=== PATIENT | female | born 1945 | race African-American/Black ===

== ENCOUNTER 2017-04-06 01:47 | Emergency (ER) | payer MEDICARE ==
[~2017-04-06] VITALS: Ht 162.6 cm; Wt 68.0 kg
[~2017-04-06 01:47] MED LIST: ABILIFY10 MG ORAL; ABILIFY5 MG ORAL; ALBUTEROL SULF8.5 GM INH; AMLODIPINE BES2.5 MG ORAL; AMLODIPINE BESYL5 MG ORAL; AMOXICILLIN500 MG ORAL; ASPIR 8181 MG ORAL; ASPIRIN EC81 MG ORAL; AUGMENTIN 875-1 EAC1 ORAL; AZITHROMYCIN250 MG ORAL; AZITHROMYCIN500 MG ORAL; BENADRYL25 M3 PO; FLUCONAZOLE100 MG ORAL; HEPARIN SO5000 UNIT2 SUBQ; HYDROCHLOROTHIA25 MG ORAL; LORAZEPAM1 MG ORAL; METOPROLOL TART50 M1 ORAL; MONTELUKAST SOD10 MG ORAL; PREDNISONE20 MG ORAL; PREDNISONE50 MG ORAL; PRILOSEC OTC20 MG ORAL; Potassium Chloride ORAL; SERTRALINE HCL100 MG PO; SINGULAIR10 MG ORAL; TRAMADOL HCL50 MG ORAL; TRAZODONE HCL100 MG ORAL; TRAZODONE HCL50 MG ORAL; ZOLOFT100 MG ORAL
--- NOTE | 2017-04-06 01:55 | Emergency Room Report ---
History of Present Illness General Chief Complaint: Multiple Trauma/Fall Source: Patient, EMS Present Illness HPI This is a 71-year-old female who has some type of autoimmune disease and lupus family per patient. She presents with chief complaint of weakness and fall. She said she been vomiting since November. Seen her doctor twice and hasn't had any workup per patient. She said she got up to use the bathroom today and was very weak and her legs gave out. She complaining of generalize weakness and hip pain. Also with knee pain. No loss of consciousness. Worse with exertion. Had to call 911. Denies any other complaint. Her weight loss is significant per patient. She used to weigh 260 pounds. Denies any diarrhea. Vomiting is nonbloody and nonbilious. Allergies: Coded Allergies: TETRACYCLINES (Unverified Allergy, Unknown, 02/23/14) Patient History Past Medical History: see triage record, old chart reviewed Past Surgical History: other Pertinent Family History: none Social History: Denies: smoking Last Menstrual Period: n/a Now: No Immunizations: other Reviewed Nursing Documentation: PMH: Agreed, PSxH: Agreed Nursing Documentation-PMH Past Medical History: No History, Except For Hx Cardiac Problems: Yes Hx Hypertension: Yes Hx Asthma: Yes Hx Cancer: Yes Hx Gastrointestinal Problems: Yes - flank pain History Of Psychiatric Problem: Yes Hx Neurological Problems: Yes Hx Seizures: Yes Hx Dizziness: Yes Hx Headaches: Yes Review of Systems Constitutional: Reports: weakness Eye: Denies: eye pain, blurred vision ENT: Denies: ear pain, nose congestion, throat swelling Respiratory: Denies: cough, shortness of breath Cardiovascular: Denies: chest pain, palpitations Gastrointestinal: Denies: abdominal pain, diarrhea, nausea, vomiting Musculoskeletal: Reports: joint pain, Denies: back pain Skin: Denies: rash Neurological: Denies: headache, numbness Endocrine: Denies: increased thirst, increased urine Hematologic/Lymphatic: Denies: easy bruising All Other Systems: negative except mentioned in HPI Physical Exam Vital Signs Date Time Temp Pulse Resp B/P (MAP) Pulse Ox O2 Delivery O2 Flow Rate FiO2 04/06/17 01:36 99.0 74 16 140/100 100 Room Air vitals unremarkable Sp02 EP Interpretation: reviewed, normal General Appearance: well appearing, no apparent distress, alert Head: normocephalic, atraumatic Eyes: bilateral eye PERRL, bilateral eye EOMI ENT: hearing grossly normal, normal pharynx Neck: full range of motion, supple, no meningismus Respiratory: chest non-tender, lungs clear, normal breath sounds Cardiovascular #1: regular rate, rhythm, no murmur Gastrointestinal: normal bowel sounds, non tender, no mass, no organomegaly, no bruit, non-distended Musculoskeletal: back normal, normal range of motion, tender - Mild left hip tenderness.. No deformity. Neurologic: alert, oriented x3 Psychiatric: mood/affect normal Skin: warm/dry Medical Decision Making Diagnostic Impression: Primary Impression: Weakness generalized Additional Impressions: Failure to thrive in adult Weight loss, abnormal Contusion, hip and thigh Qualified Codes: S70.00XA - Contusion of unspecified hip, initial encounter; S70.10XA - Contusion of unspecified thigh, initial encounter Proteinuria Qualified Codes: R80.9 - Proteinuria, unspecified ER Course Patient presents with a fall and generalize weakness. She claimed that she's been losing weight for last few month This is unintentional. No evidence of infection. No CHF, ACS, PE, dissection to name a few. Laboratory Tests Test 04/06/17 02:15 04/06/17 02:25 Urine Color Yellow Urine Appearance Slightly cloudy Urine pH 6 (4.5-8.0) Urine Specific [place] 1.015 (1.005-1.035) Urine Protein 2+ (NEGATIVE) H Urine Glucose (UA) Negative (NEGATIVE) Urine Ketones 1+ (NEGATIVE) H Urine Occult Blood 2+ (NEGATIVE) H Urine Nitrite Negative (NEGATIVE) Urine Bilirubin Negative (NEGATIVE) Urine Urobilinogen 4 MG/DL (0.0-1.0) H Urine Leukocyte Esterase 1+ (NEGATIVE) H Urine RBC 2-4 /HPF (0 - 2) H Urine WBC 2-4 /HPF (0 - 2) Urine Squamous Epithelial Cells Moderate /LPF (NONE/OCC) H Urine Bacteria Occasional /HPF (NONE) White Blood Count 10.3 K/UL (4.8-10.8) Red Blood Count 4.64 M/UL (4.20-5.40) Hemoglobin 12.3 G/DL (12.0-16.0) Hematocrit 37.2 % (37.0-47.0) Mean Corpuscular Volume 80 FL (80-99) Mean Corpuscular Hemoglobin 26.5 PG (27.0-31.0) L Mean Corpuscular Hemoglobin Concent 33.0 G/DL (32.0-36.0) Red Cell Distribution Width 17.5 % (11.6-14.8) H Platelet Count 372 K/UL (150-450) Mean Platelet Volume 8.6 FL (6.5-10.1) Neutrophils (%) (Auto) 78.8 % (45.0-75.0) H Lymphocytes (%) (Auto) 13.1 % (20.0-45.0) L Monocytes (%) (Auto) 7.0 % (1.0-10.0) Eosinophils (%) (Auto) 0.5 % (0.0-3.0) Basophils (%) (Auto) 0.7 % (0.0-2.0) Prothrombin Time 10.8 SEC (9.30-11.50) Prothromb Time International Ratio 1.0 (0.9-1.1) Activated Partial Thromboplast Time 32 SEC (23-33) Sodium Level 139 MMOL/L (136-145) Potassium Level 2.6 MMOL/L (3.5-5.1) *L Chloride Level 99 MMOL/L (98-107) Carbon Dioxide Level 25 MMOL/L (21-32) Anion Gap 16 mmol/L (5-15) H Blood Urea Nitrogen 21 mg/dL (7-18) H Creatinine 1.2 MG/DL (0.55-1.30) Estimat Glomerular Filtration Rate 53.9 mL/min (>60) Glucose Level 129 MG/DL (74-106) H Calcium Level 9.2 MG/DL (8.5-10.1) Total Bilirubin 0.9 MG/DL (0.2-1.0) Aspartate Amino Transf (AST/SGOT) 23 U/L (15-37) Alanine Aminotransferase (ALT/SGPT) < 6 U/L (12-78) L Alkaline Phosphatase 74 U/L (46-116) Troponin I 0.053 ng/mL (0.000-0.056) Total Protein 8.3 G/DL (6.4-8.2) H Albumin 2.8 G/DL (3.4-5.0) L Globulin 5.5 g/dL Albumin/Globulin Ratio 0.5 (1.0-2.7) L Lipase 248 U/L (73-393) Lab Results Impression labs unremarkable. EKG Diagnostic Results Rate: normal Rhythm: NSR ST Segments: no acute changes Rhythm Strip Diag. Results Rhythm Strip Time: 05:49 EP Interpretation: yes Rate: 82 Rhythm: NSR, no PVC's, no ectopy Chest X-Ray Diagnostic Results Chest X-Ray Diagnostic Results : Chest X-Ray Ordered: Yes # of Views/Limited/Complete: 1 View Indication: Chest Pain EP Interpretation: Yes Interpretation: no consolidation, no effusion, no pneumothorax, no acute cardiopulmonary disease Impression: No acute disease Electronically Signed by: Jose Miguel Eddy MD Other X-Ray Diagnostic Results Other X-Ray Diagnostic Results : X-Ray ordered: pelvis Indication: Pain EP Interpretation: Yes Interpretation: no dislocation, no soft tissue swelling, no fractures Impression: No acute disease Electronically Signed by: Jose Miguel Eddy MD CT/MRI/US Diagnostic Results CT/MRI/US Diagnostic Results : Imaging Test Ordered: CT abd and pelvis Impression Neg per radiologist. Last Vital Signs Date Time Temp Pulse Resp B/P (MAP) Pulse Ox O2 Delivery O2 Flow Rate FiO2 04/06/17 01:36 99.0 74 16 140/100 100 Room Air Status: improved Disposition: XFER T-[facility] Condition: Stable JOSE MIGUEL EDDY M.D. Apr 06, 2017 01:55
[2017-04-06 02:48] LABS: APPEARANCE,URINE SLIGHTLY CLOUDY; GLUCOSE, URINE (UA) NEGATIVE (NEGATIVE); KETONES,URINE 1+ (NEGATIVE); NITRITE,URINE NEGATIVE (NEGATIVE); PH,URINE 6 (4.5-8.0); PROTEIN,URINE 2+ (NEGATIVE); UROBILINOGEN,URINE 4 MG/DL (0.0-1.0)
[2017-04-06 02:50] LABS: BASOPHILS % (AUTO) 0.7 % (0.0-2.0); EOSINOPHILS % (AUTO) 0.5 % (0.0-3.0); HEMATOCRIT 37.2 % (37.0-47.0); HEMOGLOBIN 12.3 G/DL (12.0-16.0); LYMPHOCYTES % (AUTO) 13.1 % (20.0-45.0); MEAN CORPUSCULAR VOLUME 80 FL (80-99); NEUTROPHILS % (AUTO) 78.8 % (45.0-75.0); PLATELET COUNT 372 K/UL (150-450); RED BLOOD COUNT 4.64 M/UL (4.20-5.40); RED CELL DISTRIBUTION WIDTH 17.5 % (11.6-14.8); WHITE BLOOD COUNT 10.3 K/UL (4.8-10.8)
[2017-04-06 02:56] LABS: ALANINE AMINOTRANSFERASE < 6 U/L (12-78); ALBUMIN 2.8 G/DL (3.4-5.0); ALBUMIN/GLOBULIN RATIO 0.5 (1.0-2.7); ALKALINE PHOSPHATASE 74 U/L (46-116); ANION GAP 16 mmol/L (5-15); ASPARTATE AMINO TRANSFERASE 23 U/L (15-37); BILIRUBIN,TOTAL 0.9 MG/DL (0.2-1.0); BLOOD UREA NITROGEN 21 mg/dL (7-18); CALCIUM 9.2 MG/DL (8.5-10.1); CARBON DIOXIDE 25 MMOL/L (21-32); CHLORIDE 99 MMOL/L (98-107); CREATININE 1.2 MG/DL (0.55-1.30); SODIUM 139 MMOL/L (136-145)
[2017-04-06 03:02] LABS: POTASSIUM 2.6 MMOL/L (3.5-5.1)
[2017-04-06 03:03] VITALS: BP 130/84
[2017-04-06 03:05] LABS: BILIRUBIN, URINE NEGATIVE (NEGATIVE); COLOR,URINE YELLOW
[2017-04-06 03:06] LABS: LEUKOCYTE ESTERASE ,URINE 1+ (NEGATIVE)
[2017-04-06] MEDS ORDERED: Tubing IV Cassette IV ONE (03:22)
[2017-04-06 04:46] VITALS: BP 147/77
[2017-04-06] MEDS ORDERED: FLUTICASONE PRO16 G1 NASAL (04:56)
[2017-04-06] MEDS ORDERED: ATORVASTATIN CA40 MG ORAL (04:56)
[2017-04-06] MEDS ORDERED: BECONASE AQ25 GM NASAL (04:56)
[2017-04-06] MEDS ORDERED: VENTOLIN HFA18 GM INH (04:56)
[2017-04-06] MEDS ORDERED: RITUXAN10 MG/ML IV (04:56)
[2017-04-06 06:01] VITALS: BP 145/75
[2017-04-06 06:15] VITALS: BP 145/75
--- NOTE | 2017-04-06 08:57 | Diagnostic Imaging Report ---
Indication: Abdominal pain Technique: CT of the abdomen and pelvis utilizing automated exposure control without intravenous or oral contrast. CT dose: Total DLP 470.32 mGycm; CTDI vol 9.98 mGy Comparison: 12/19/2015 Findings: Please note that evaluation of the abdominal and pelvic viscera is limited without the use of intravenous and oral contrast. Within these limitations, the following observations are made: There are postoperative changes of the right lung base with scarring and mild fibrosis. Dependent atelectatic changes are noted. The heart is enlarged. There is chronic mild to moderate pericardial effusion. The gallbladder is again noted to be mildly distended. There is no appreciable sludge or stones. No pericholecystic change is identified. Liver, spleen, adrenal glands and pancreas are grossly unremarkable for noncontrast evaluation. Kidneys are symmetric in size. No urinary tract stones or hydronephrosis seen bilaterally. The bladder is mildly collapsed, limiting its evaluation but grossly unremarkable. The patient is status post hysterectomy. There is mild pelvic floor relaxation/dissent. There is no bowel obstruction. No free intraperitoneal fluid or air is identified. There is no appreciable focal or diffuse abnormal bowel wall thickening however evaluation is limited without the use of oral contrast. The appendix is normal. There are a few scattered colonic diverticula. No evidence of diverticulitis. Abdominal aorta is normal in caliber with scattered atherosclerotic calcifications. Old/healed right rib fracture. There are degenerative changes in the spine with unchanged grade 1 anterolisthesis of L4 on L5 with probable associated moderate canal stenosis. Unchanged dystrophic calcification/ossification in the gluteal soft tissues. IMPRESSION: Limited evaluation without intravenous and oral contrast. Within these limitations: * No definite evidence of acute intra-abdominal pathology to explain patient's abdominal pain. More sensitive evaluation with oral and IV contrast can be obtained as clinically indicated. * Unchanged, nonspecific mild gallbladder distention. No stones/sludge identified on CT. No evidence of pericholecystic inflammatory change. Ultrasound can be obtained for better evaluation as clinically indicated. * A few scattered colonic diverticula. No evidence to suggest acute diverticulitis. * Stable cardiomegaly and unchanged mild to moderate pericardial effusion. * Postoperative range of the right lung base with mild fibrotic changes. Additional findings as above. This corresponds with the statrad preliminary report. The CT scanner at [facility] is accredited by the [employer] and the scans are performed using protocols designed to limit radiation exposure to as low as reasonably achievable to attain images of sufficient resolution adequate for diagnostic evaluation.
--- NOTE | 2017-04-06 10:35 | Diagnostic Imaging Report ---
Indication: Pain as post fall Technique: Pelvis and bilateral hip radiographs Comparison: Is made to images of the pelvis on concurrent CT of the abdomen and pelvis. Findings: There is no acute fracture or dislocation. Degenerative changes of the bilateral hips noted with subchondral sclerosis and small marginal osteophytes. Symphysis pubis and sacroiliac joints are grossly unremarkable. Degenerative changes are noted in the lower lumbar spine. Flushing calcifications projecting over the bilateral iliac bones correspond with the soft tissue calcifications noted on concurrent CT. Bowel gas pattern is unremarkable. Impression: No evidence of acute fracture or dislocation.
--- NOTE | 2017-04-06 10:36 | Diagnostic Imaging Report ---
Indication: Fall Technique: XRAY Chest 1v Comparison: 12/20/2015 Findings: Heart is enlarged but stable in size. Surgical sutures noted in the right lung base. There is no focal airspace consolidation, pleural effusion or pneumothorax. There is a remote/healed right-sided rib fracture. No acute osseous abnormality is seen. Impression: No radiographic evidence of acute cardiopulmonary disease. Stable cardiomegaly. Remote/healed right-sided rib fracture. No acute osseous abnormality seen.
--- NOTE | 2017-04-11 14:57 | Cardiology Report ---
APPROVED REPORT EKG Measurement Heart [id number] Normal sinus rhythm Possible Left atrial enlargement Left axis deviation Low voltage QRS Cannot rule out Anteroseptal infarct, age undetermined Abnormal ECG
== END 2017-04-06 06:15 | disposition short-term general hospital (02) ==
LOC: EDBD 01:47 → EMR 02:15
DX: R53.1 Weakness (principal); R62.7 Adult failure to thrive; R63.4 Abnormal weight loss; R80.9 Proteinuria, unspecified; S70.02XA Contusion of left hip, initial encounter; S70.12XA Contusion of left thigh, initial encounter; W19.XXXA Unspecified fall, initial encounter; Y92.009 Unspecified place in unspecified non-institutional (private) residence as the place of occurrence of the external cause; M32.9 Systemic lupus erythematosus, unspecified; I10 Essential (primary) hypertension; J45.909 Unspecified asthma, uncomplicated
CPT/HCPCS: 36415; 71045; 72170; 74176; 80053; 81003; 83690; 84484; 85025; 85610; 85730; 93005; 96361; 96374; 99285; J2405; J8499

== ENCOUNTER 2017-04-12 07:26 | Emergency (ER) | payer MEDICARE ==
[~2017-04-12] VITALS: Ht 162.6 cm; Wt 68.0 kg
[~2017-04-12 07:26] MED LIST changes: +ATORVASTATIN CA40 MG ORAL; +BECONASE AQ25 GM NASAL; +FLUTICASONE PRO16 G1 NASAL; +RITUXAN10 MG/ML IV; +VENTOLIN HFA18 GM INH
[2017-04-12 07:45] VITALS: BP 165/82
--- NOTE | 2017-04-12 08:20 | Emergency Room Report ---
History of Present Illness General Chief Complaint: General Complaint Source: Patient Present Illness HPI 71-year-old female presents with continued weakness and nausea. Patient states tried to have chicken last night for dinner, vomited up. She denies associated fever chills or diarrhea. Complaining of generalized abdominal discomfort. Patient was here 6 days ago for similar, found to have hypokalemia. Was eventually transferred outside facility. Patient not sure she had CT done at outside facility. Is otherwise poor historian. History of present illness otherwise limited Allergies: Coded Allergies: TETRACYCLINES (Unverified Allergy, Unknown, 02/23/14) Patient History Past Medical History: HTN Past Surgical History: none Pertinent Family History: none Social History: Denies: smoking, alcohol use, drug use Now: No Immunizations: UTD Reviewed Nursing Documentation: PMH: Agreed, PSxH: Agreed Nursing Documentation-PMH Hx Cardiac Problems: Yes Hx Hypertension: Yes Hx Asthma: Yes Hx Cancer: Yes Hx Gastrointestinal Problems: Yes - flank pain Hx Neurological Problems: Yes Hx Seizures: Yes Hx Dizziness: Yes Hx Headaches: Yes Review of Systems All Other Systems: negative except mentioned in HPI Physical Exam Vital Signs Date Time Temp Pulse Resp B/P (MAP) Pulse Ox O2 Delivery O2 Flow Rate FiO2 04/12/17 07:32 98.4 87 16 176/100 98 Room Air Sp02 EP Interpretation: reviewed, normal General Appearance: normal inspection, well appearing, no apparent distress, alert, GCS 15, non-toxic Head: normocephalic, atraumatic Eyes: bilateral eye PERRL, bilateral eye EOMI ENT: normal ENT inspection, hearing grossly normal, normal pharynx, no angioedema, normal voice, TMs + canals normal, uvula midline, moist mucus membranes Neck: normal inspection, full range of motion, supple, thyroid normal, no meningismus, no bony tend Respiratory: normal inspection, lungs clear, normal breath sounds, no rhonchi, no respiratory distress, no retraction, no accessory muscle use, no wheezing, speaking full sentences Cardiovascular #1: regular rate, rhythm, no edema, no JVD, normal capillary refill Gastrointestinal: normal inspection, normal bowel sounds, soft, no mass, no peritonitis, non-distended, no guarding, no hernia, no pulsatile mass, other - Generalized mild discomfort Genitourinary: no CVA tenderness Musculoskeletal: normal inspection, back normal, normal range of motion, no calf tenderness, pelvis stable, Dominique's Sign negative Neurologic: normal inspection, alert, oriented x3, responsive, silk weaver III-XII nml as tested, motor strength/tone normal, cerebellar normal, normal gait, speech normal Psychiatric: normal inspection, judgement/insight normal, mood/affect normal, no suicidal/homicidal ideation, no delusions Skin: normal inspection, normal color, no rash Lymphatic: normal inspection, no adenopathy Medical Decision Making Diagnostic Impression: Primary Impression: Abdominal pain Qualified Codes: R10.9 - Unspecified abdominal pain Additional Impressions: Weakness Nausea & vomiting Qualified Codes: R11.2 - Nausea with vomiting, unspecified UTI (urinary tract infection) Qualified Codes: N30.01 - Acute cystitis with hematuria ER Course 71-year-old female with nausea and vomiting and UTI Symptoms of nausea suprapubic abdominal pain and weakness likely due to untreated UTI Urinalysis today leukocytes increased from 1-3 with now 5-10 WBCs, no nitrites Was given dose of Rocephin and ER, rx for Keflex Previously seen hypokalemia resolved No leukocytosis, H&H stable ecg no ischemia, trop WNL - unlikely ACS as cause of ischemia ER course: Patient has remained stable during ED stay. Disposition: Patient is to be discharged to home. Prescriptions given are keflex Patient is instructed to follow up with their primary care doctor within 5 days. Strict return precautions discussed with patient such as fever, chills, worsening/severe pain, nausea, vomiting, which may indicate severe illness. Patient verbalizes understanding and agrees with plan. Please note that this Emergency Department Report was dictated using [employer] off operator scorer technology software, occasionally this can lead to erroneous entry secondary to interpretation by the dictation equipment EKG Diagnostic Results Rate: normal Rhythm: NSR ST Segments: no acute changes ASA given to the pt in ED: No Rhythm Strip Diag. Results EP Interpretation: yes Rate: 68 Rhythm: NSR, no PVC's, no ectopy Last Vital Signs Date Time Temp Pulse Resp B/P (MAP) Pulse Ox O2 Delivery O2 Flow Rate FiO2 04/12/17 07:45 98.6 9 18 165/82 100 Room Air Status: improved Disposition: HOME, SELF-CARE Scripts Cephalexin* (KEFLEX*) 500 Mg Capsule 500 MG ORAL Q6H for 7 Days, #28 CAP 0 Refills Prov: DAIGNAULT,KAMI M.D. 04/12/17 Referrals: NOT CHOSEN [facility]/,REFERRING (PCP) KAMI MEHAT M.D. Apr 12, 2017 08:20
[2017-04-12 08:36] LABS: APPEARANCE,URINE CLEAR; BILIRUBIN, URINE NEGATIVE (NEGATIVE); GLUCOSE, URINE (UA) NEGATIVE (NEGATIVE); KETONES,URINE NEGATIVE (NEGATIVE); LEUKOCYTE ESTERASE ,URINE 3+ (NEGATIVE); NITRITE,URINE NEGATIVE (NEGATIVE); PH,URINE 7 (4.5-8.0); PROTEIN,URINE 2+ (NEGATIVE); UROBILINOGEN,URINE 1 MG/DL (0.0-1.0)
[2017-04-12 08:48] LABS: BASOPHILS % (AUTO) 0.3 % (0.0-2.0); HEMATOCRIT 33.2 % (37.0-47.0); HEMOGLOBIN 10.6 G/DL (12.0-16.0); LYMPHOCYTES % (AUTO) 14.9 % (20.0-45.0); MEAN CORPUSCULAR VOLUME 81 FL (80-99); MONOCYTES % (AUTO) 8.8 % (1.0-10.0); PLATELET COUNT 399 K/UL (150-450); RED BLOOD COUNT 4.12 M/UL (4.20-5.40); RED CELL DISTRIBUTION WIDTH 17.5 % (11.6-14.8); WHITE BLOOD COUNT 6.9 K/UL (4.8-10.8)
[2017-04-12 08:51] LABS: COLOR,URINE YELLOW
[2017-04-12] MEDS ORDERED: cefTRIAXone 1 GM in NS 55 ML IVPB ONE (09:15)
[2017-04-12 09:17] LABS: ALBUMIN 2.7 G/DL (3.4-5.0); ALBUMIN/GLOBULIN RATIO 0.7 (1.0-2.7); ANION GAP 9 mmol/L (5-15); BILIRUBIN,TOTAL 0.4 MG/DL (0.2-1.0); CARBON DIOXIDE 27 MMOL/L (21-32); CHLORIDE 102 MMOL/L (98-107); POTASSIUM 3.8 MMOL/L (3.5-5.1); SODIUM 138 MMOL/L (136-145)
[2017-04-12] MEDS ORDERED: ZOFRAN ODT4 MG ORAL (09:27)
[2017-04-12] MEDS ORDERED: OMEPRAZOLE20 M3 ORAL (09:27)
[2017-04-12] MEDS ORDERED: NORCO 5-325 TA1 EAC1 ORAL (09:27)
[2017-04-12] MEDS ORDERED: MAG-OXIDE400 M1 PO (09:27)
[2017-04-12] MEDS ORDERED: KEFLEX500 MG ORAL (09:32)
[2017-04-12 09:52] LABS: ALANINE AMINOTRANSFERASE 25 U/L (12-78); ALKALINE PHOSPHATASE 56 U/L (46-116); ASPARTATE AMINO TRANSFERASE 38 U/L (15-37); BLOOD UREA NITROGEN 27 mg/dL (7-18); CALCIUM 8.7 MG/DL (8.5-10.1)
[2017-04-12 13:07] VITALS: BP 149/78
[2017-04-12 14:25] VITALS: BP 148/88
--- NOTE | 2017-04-24 17:57 | Cardiology Report ---
APPROVED REPORT EKG Measurement Heart [id number] Normal sinus rhythm Possible Left atrial enlargement Anterior infarct, age undetermined Abnormal ECG
== END 2017-04-12 14:25 | disposition home or self-care (01) ==
LOC: EDBD 07:26 → EDUNIT# 07:26 → EMR 08:07 → CANBEDREQ 09:27 → EMR 14:25
DX: R10.84 Generalized abdominal pain (principal); R53.1 Weakness; I10 Essential (primary) hypertension; R11.2 Nausea with vomiting, unspecified; N39.0 Urinary tract infection, site not specified
CPT/HCPCS: 36415; 80053; 81003; 83690; 84484; 85025; 86850; 86900; 86901; 93005; 96374; 96375; 99284; J0696; J2405